=== PATIENT | male | born 1940 | race Caucasian/White ===

== ENCOUNTER 2019-02-08 20:08 | Emergency (ER) | payer MEDICARE, MEDICAID ==
[~2019-02-08] VITALS: Ht 182.9 cm; Wt 106.1 kg
[2019-02-08 20:10] VITALS: BP 166/95
--- NOTE | 2019-02-08 20:10 | NUR ---
PT BIB EMS C/O EPISTAXIS X7 HRS, NOW C/O BLACK TARRY STOOL AND IRRITATED THROAT FROM SWALLING BLOOD. PT ON PLAVIX & ASA. PT AOX4. NAD NOTED. RESP EVEN AND UNLABORED. PT DENIES PAIN AT THIS TIME. MINIMAL BLEEDING NOTED. PT ON MONITOR IN BED 2 WITH FAMILY AT BEDSIDE. WILL CONTINUE TO MONITOR.
[2019-02-08] MEDS ORDERED: ONDANSETRON HCL/PF 4 MG/2 ML VIAL ONE (20:26)
[2019-02-08] MEDS ORDERED: ONDANSETRON HCL/PF 4 MG/2 ML VIAL IVP ONE (20:30)
[2019-02-08] MEDS ORDERED: IV NS 0.9% 1,000 ML BAG IV ONE (20:30)
--- NOTE | 2019-02-08 20:50 | NUR ---
[id number] INITIATED. BLOOD DRAWN AND GIVEN TO LAB.
[2019-02-08 20:52] LABS: BASOPHILS # (AUTO) 0.1 /CMM (0.0-0.2); BASOPHILS % (AUTO) 1.3 % (0.0-2.0); EOSINOPHILS % (AUTO) 1.9 % (0.0-6.0); HEMATOCRIT 41 % (39-51); HEMOGLOBIN 13.3 g/dL (13.5-17.5); LYMPHOCYTES # (AUTO) 1.5 /CMM (0.8-4.8); LYMPHOCYTES % (AUTO) 14.5 % (20.0-44.0); MEAN CORPUSCULAR HGB CONC 33 g/dl (31.0-36.0); MEAN CORPUSCULAR VOLUME 82 fL (80-96); MONOCYTES # (AUTO) 0.6 /CMM (0.1-1.30); MONOCYTES % (AUTO) 6.3 % (2.0-12.0); NEUTROPHILS # (AUTO) 7.7 /CMM (1.8-8.9); PLATELET COUNT (AUTO) 221 /CMM (150-450); RED BLOOD CELL COUNT(AUTO) 4.93 MIL/uL (4.5-6.0); WHITE BLOOD COUNT (AUTO) 10.2 K/uL (4.3-11.0)
[2019-02-08 21:01] LABS: CALCIUM, SERUM 8.6 mg/dL (8.5-10.1); CARBON DIOXIDE 22 mmol/L (21-32); CHLORIDE 107 mmol/L (98-107); CREATININE 0.9 mg/dL (0.6-1.3); GLUCOSE 174 mg/dL (74-106); POTASSIUM 4.3 mmol/L (3.5-5.1); SODIUM SERUM 140 mmol/L (136-145); UREA NITROGEN, BLOOD 43 mg/dL (7-18)
--- NOTE | 2019-02-08 21:02 | NUR ---
CALLED [facility] FOR TELE BED
[2019-02-08 21:08] LABS: ALANINE AMINOTRANSFERASE 24 U/L (12-78); ALBUMIN 3.3 g/dL (3.4-5.0); ALKALINE PHOSPHATASE 60 U/L (46-116); ASPARTATE AMINOTRANSFERASE 17 U/L (15-37); BILIRUBIN,DIRECT 0.1 mg/dL (0.0-0.2); BILIRUBIN,TOTAL 0.4 mg/dL (0.2-1.0); LIPASE 120 U/L (73-393); TOTAL PROTEIN, SERUM 6.9 g/dL (6.4-8.2)
--- NOTE | 2019-02-08 21:48 | NUR ---
IV removed. Catheter intact and site benign. Pressure and 4x4 applied to site. No bleeding noted.Patient discharged to home in stable condition. Written and verbal after care instructions given. Patient verbalizes understanding of instruction.
== END 2019-02-08 21:50 | disposition home or self-care (01) ==
LOC: ER 20:10
DX: R04.0 Epistaxis (principal); R42 Dizziness and giddiness; K43.9 Ventral hernia without obstruction or gangrene; K92.1 Melena; I10 Essential (primary) hypertension; E11.9 Type 2 diabetes mellitus without complications; H11.89 Other specified disorders of conjunctiva; Z98.890 Other specified postprocedural states
CPT/HCPCS: 36415; 80048; 80076; 83690; 84484; 85025; 85730; 86850; 93005; 96361; 96374; 99284; J2405; J7030